=== PATIENT | female | born 1995 | race Caucasian/White ===

== ENCOUNTER 2019-03-21 19:03 | Emergency (ER) | payer OTHER ==
[2019-03-21 19:23] VITALS: PULSE 72; TEMP 98; BMI 28.3
--- NOTE | 2019-03-21 19:27 | PDOC ---
History of Present Illness - General Chief Complaint: Injury Stated Complaint: FALL Time Seen by Provider: 03/21/19 19:27 - History of Present Illness Initial Comments: 03/21/19 19:48 Ms. Dee Baeza is a 23 yo female w/ no pmh who presents for evaluation after fall. Patient was reportedly hanging something on the wall on a ladder when she mis-stepped and fell from approx. 5 feet up. Patient hit L side on the couch on the way down. Patient hit head and then lost consciousness for approximately 1 minute per friends who are with her. She is currently complaining of L sided pain. The patient denies chest pain, shortness of breath, and dizziness. Denies fever , chills, nausea, vomit, diarrhea and constipation. Denies dysuria, frequency, urgency and hematuria. Past History - Past Medical History Allergies/Adverse Reactions: Allergies Allergy/AdvReac Type Severity Reaction Status Date / Time No Known Allergies Allergy Verified 03/21/19 19:43 Home Medications: Ambulatory Orders NK [No Known Home Medication] 03/21/19 - Suicide/Smoking/Psychosocial Hx Smoking History: Unknown if ever smoked Have you smoked in the past 12 months: No Hx Alcohol Use: No Drug/Substance Use Hx: No Review of Systems - Review of Systems Comments:: 03/21/19 19:50 GENERAL/CONSTITUTIONAL: No fever or chills. No weakness. HEAD, EYES, EARS, NOSE AND THROAT: No change in vision. No ear pain or discharge. No sore throat. CARDIOVASCULAR: No chest pain or shortness of breath RESPIRATORY: No cough, wheezing, or hemoptysis. GASTROINTESTINAL: No nausea, vomiting, diarrhea or constipation. GENITOURINARY: No dysuria, frequency, or change in urination. MUSCULOSKELETAL: +L side pain where she struck the cough. SKIN: No rash NEUROLOGIC: +LOC as described. ENDOCRINE: No increased thirst. No abnormal weight change HEMATOLOGIC/LYMPHATIC: No anemia, easy bleeding, or history of blood clots. ALLERGIC/IMMUNOLOGIC: No hives or skin allergy. *Physical Exam - Vital Signs Last Vital Signs Temp Pulse Resp BP Pulse Ox 98 F 72 20 98/63 100 03/21/19 19:19 03/21/19 19:19 03/21/19 19:19 03/21/19 19:19 03/21/19 19:19 - Physical Exam Comments: 03/21/19 19:51 GENERAL: Awake, alert, and fully oriented, in no acute distress HEAD: No signs of trauma, normocephalic, atraumatic EYES: PERRLA, EOMI, sclera anicteric, conjunctiva clear ENT: Auricles normal inspection, hearing grossly normal, nares patent, oropharynx clear without exudates. Moist mucosa NECK: Normal ROM, supple, no lymphadenopathy, JVD, or masses LUNGS: +L sided chest wall tenderness. No distress, speaks full sentences, clear to auscultation bilaterally HEART: Regular rate and rhythm, normal S1 and S2, no murmurs, rubs or gallops, peripheral pulses normal and equal bilaterally. ABDOMEN: +L sided tenderness in upper and lower quadrants. Soft, normoactive bowel sounds. No guarding, no rebound. No masses EXTREMITIES: Normal inspection, Normal range of motion, no edema. No clubbing or cyanosis. NEUROLOGICAL: Cranial nerves II through XII grossly intact. Normal speech, normal gait, no focal sensorimotor deficits SKIN: Warm, Dry, normal turgor, no rashes or lesions noted. ED Treatment Course - LABORATORY CBC & Chemistry Diagram: 03/21/19 19:48 03/21/19 19:48 Medical Decision Making - Medical Decision Making 03/21/19 19:52 Ms. Dee Baeza is a 23 yo female w/ no pmh who presents for evaluation of traumatic injury. Fall described as mechanical and included L sided trauma and head injury / LOC. Patient will be evaluated with trauma labs as well as Head/C- spine/Chest/Abd/Pelvis CT's. 03/21/19 22:13 Head and C-spine CT's normal. 03/21/19 22:35 CT Chest/Abd/Pelvis normal. No concern for acute process at this time and patient observed to be resting comfortably in bed. Patient will be discharged for further outpatient evaluation. Discharging to home. *DC/Admit/Observation/Transfer Diagnosis at time of Disposition: Bruised rib Qualifiers: Encounter type: initial encounter Laterality: left Qualified Code(s): S20.212A - Contusion of left front wall of thorax, initial encounter - Discharge Dispostion Disposition: HOME - Referrals - Patient Instructions Printed Discharge Instructions: DI for Rib Contusion Additional Instructions: You were evaluated today in the ER after your fall. We performed labs as well as CT scans of your head, neck, chest, abdomen, and pelvis with no concerning findings. We believe you are safe for discharge to home at this time. You may take motrin or tylenol per package instructions for pain control. Follow-up with primary care provider early next week for further evaluation. Return to ER if any fever, chills, weakness, altered mental status, or other concerning symptoms. Fuiste evaluado hoy en la jessie de emergencias despus de tu cada. Realizamos anlisis de laboratorio y tomografas computarizadas de christensen iliana, teto, trax , abdomen y pelvis sin hallazgos preocupantes. Creemos que est seguro para ser dado de wenyd en christensen hogar en matt momento. Puede luc motrin o tylenol segn las instrucciones del paquete para controlar el dolor. Kaitlin un seguimiento con el proveedor de atencin primaria a principios de la prxima semana para godwin evaluacin adicional. Regrese a la jessie de emergencias si tiene fiebre, escalofros, debilidad, estado mental alterado u otros sntomas relacionados. Print Language: BELIZEAN - Post Discharge Activity
[2019-03-21] MEDS ORDERED: ONDANSETRON 4 MG/2 ML VIAL IVPUSH ONE (19:43)
[2019-03-21] MEDS ORDERED: morphine CARPU-JECT 4 MG/1 ML DISP.SYRIN IVPUSH ONE (19:43)
[2019-03-21] MEDS ORDERED: morphine SULFATE 4 MG/ML VIAL ONE (19:49)
[2019-03-21] MEDS ORDERED: ONDANSETRON 4 MG/2 ML VIAL ONE (19:49)
[2019-03-21 19:51] LABS: BASO % 0.2 % (0-2.0); EOS % 0.3 % (0-4.5); HEMATOCRIT 41.7 % (32.4-45.2); HEMOGLOBIN 13.9 GM/dL (10.7-15.3); LYMPH % 17.2 % (8-40); MCHC 33.3 g/dl (32.0-36.0); MEAN PLT VOLUME 8.3 fl (7.5-11.1); MONO % 3.8 % (3.8-10.2); NEUT % 78.5 % (42.8-82.8); RBC 4.48 M/mm3 (3.60-5.2); RDW 12.7 % (11.6-15.6); WHITE BLOOD COUNT 11.1 K/mm3 (4.0-10.0)
[2019-03-21 20:00] VITALS: BP 123/83
--- NOTE | 2019-03-21 20:04 | PDOC ---
Documentation entered by Manish Bal SCRIBE, acting as scribe for Emma Dash MD. Emma Dash MD: This documentation has been prepared by the scribe, Manish Bal SCRIBE, under my direction and personally reviewed by me in its entirety. I confirm that the documentation accurately reflects all work, treatment, procedures, and medical decision making performed by me. Attending Attestation - Resident Resident Name: [email or web address] - ED Attending Attestation I have performed the following: I have examined & evaluated the patient, The case was reviewed & discussed with the resident, I agree w/resident's findings & plan, Exceptions are as noted - HPI HPI: 03/21/19 20:00 The patient is a 23 year old female with no significant past medical history who presents to the emergency department with an injury s/p a fall prior to arrival. As per the patient's family at bedside, the patient was at home standing on a 6 foot ladder hanging something on the wall when she mis stepped , fell off and hit her head on the couch. As per the family, the patient had associated loc for about 1 minute. On exam, the patient reports some associated left sided flank pain. She denies any lightheadedness, dizziness, headache, vision changes, neck or back pain,nausea or vomiting. She denies any other symptoms or complaints. - Physicial Exam PE: GENERAL: Awake, alert, and fully oriented. In c-collar. Appears uncomfortable and anxious. HEAD: No signs of trauma EYES: PERRLA, EOMI, sclera anicteric, conjunctiva clear ENT: Auricles normal inspection, hearing grossly normal, nares patent, oropharynx clear without exudates. Moist mucosa NECK: Normal ROM, supple, no lymphadenopathy, JVD, or masses LUNGS: Breath sounds equal, clear to auscultation bilaterally. No wheezes, and no crackles. +Tenderness to L lateral lower rib margin and L flank HEART: Regular rate and rhythm, normal S1 and S2, no murmurs, rubs or gallops ABDOMEN: Soft, +LUQ tenderness, normoactive bowel sounds. No guarding, no rebound. No masses EXTREMITIES: Normal range of motion, no edema. No clubbing or cyanosis. No cords, erythema, or tenderness NEUROLOGICAL: Cranial nerves II through XII grossly intact. Normal speech. Motor and sensation intact SKIN: Warm, Dry, normal turgor, no rashes or lesions noted. - Medical Decision Making Based on mechanism, will obtain CT chest, abdomen, c-spine, and head. Will give pain medication, as she has exquisite tenderness to L sided ribs. Will need to r /o fracture and poss splenic injury.
[2019-03-21 20:09] LABS: INR 1.03 (0.83-1.09); PROTHROMBIN TIME (PATIENT) 12.2 SEC (9.7-13.0)
[2019-03-21 20:12] LABS: ACTIVATED PTT 29.6 SECONDS (25.2-36.5)
[2019-03-21 20:16] LABS: BILIRUBIN,TOTAL 0.5 mg/dL (0.2-1); BLOOD UREA NITROGEN 13.8 mg/dL (7-18); CREATININE 0.7 mg/dL (0.55-1.3); TOT PROT 7.6 g/dl (6.4-8.2)
[2019-03-21 20:33] LABS: PLATELET COUNT 313 K/MM3 (134-434)
== END 2019-03-21 23:26 | disposition home or self-care (01) ==
LOC: JER 19:03 → JERBED 19:32 → UNDOADMIN 19:32 → JER 23:26
PROC: 3E033NZ Introduction of Analgesics, Hypnotics, Sedatives into Peripheral Vein, Percutaneous Approach (ICD-10-PCS; principal; 2019-03-21)
PROC: 3E033GC Introduction of Other Therapeutic Substance into Peripheral Vein, Percutaneous Approach (ICD-10-PCS; 2019-03-21)
DX: S20.212A Contusion of left front wall of thorax, initial encounter (principal); S06.9X9A Unspecified intracranial injury with loss of consciousness of unspecified duration, initial encounter; W11.XXXA Fall on and from ladder, initial encounter; Y93.89 Activity, other specified; Y92.018 Other place in single-family (private) house as the place of occurrence of the external cause; Y99.8 Other external cause status
CPT/HCPCS: 36415; 70450-TC; 71260-TC; 72125-TC; 74177-TC; 80053; 84703; 85025; 85610; 85730; 86850; 86900; 86901; 96374; 96375; 99283-25

== ENCOUNTER 2021-10-23 14:36 | Emergency (ER) | payer OTHER ==
[2021-10-23 14:54] VITALS: BP 109/48; PULSE 92; TEMP 97.6; BMI 31.1
[2021-10-23] MEDS ORDERED: ACETAMINOPHEN 500 MG TABLET (FP) PO ONE (15:26)
[2021-10-23] MEDS ORDERED: ACETAMINOPHEN 500 MG TABLET (FP) ONE (15:35)
[2021-10-23 17:31] LABS: PH,URINE 5.5 (5.0-8.0); URINE APPEARANCE CLEAR; URINE BILIRUBIN NEGATIVE (NEGATIVE); URINE COLOR YELLOW; URINE GLUCOSE (UA) NEGATIVE (NEGATIVE); URINE KETONE TRACE (NEGATIVE); URINE LEUK ESTERASE NEGATIVE (NEGATIVE); URINE NITRITE NEGATIVE (NEGATIVE); URINE PROTEIN NEGATIVE (NEGATIVE); URINE UROBILINOGEN 0.2 mg/dL (0.2-1.0)
[2021-10-23 18:02] LABS: HCG,QUALITATIVE URINE Positive
[2021-10-23 18:21] LABS: BASO % 0.2 % (0-2.0); EOS % 0.2 % (0-4.5); LYMPH % 27.8 % (8-40); MCH 30.9 pg (25.7-33.7); MCHC 33.3 g/dl (32.0-36.0); MEAN CELL VOLUME 92.7 fl (80-96); MEAN PLT VOLUME 8.2 fl (7.5-11.1); MONO % 5.7 % (3.8-10.2); NEUT % 66.1 % (42.8-82.8); PLATELET COUNT 316 10^3/uL (134-434); RDW 13.3 % (11.6-15.6); WHITE BLOOD COUNT 9.8 K/mm3 (4.0-10.0)
[2021-10-23 18:39] LABS: CREATININE 0.6 mg/dL (0.55-1.3)
== END 2021-10-23 20:03 | disposition home or self-care (01) ==
LOC: JER 14:36 → JERFT 14:36
DX: O20.0 Threatened abortion (principal); Z3A.01 Less than 8 weeks gestation of pregnancy
CPT/HCPCS: 36415; 76817-TC; 80048; 81003; 84702; 84703; 85025; 87086; 99284-25

== ENCOUNTER 2021-10-30 14:28 | Emergency (ER) | payer OTHER ==
[2021-10-30 14:34] VITALS: TEMP 98.6; BMI 31.1
[2021-10-30 21:17] VITALS: BP 132/78; PULSE 89
== END 2021-10-30 21:17 | disposition home or self-care (01) ==
LOC: JER 14:28
DX: O20.0 Threatened abortion (principal)
CPT/HCPCS: 36415; 76817-TC; 84702; 99284-25

== ENCOUNTER 2023-02-16 08:05 | Emergency (ER) | payer OTHER ==
[2023-02-16 08:24] VITALS: BP 107/68; PULSE 89; RESP 18; TEMP 98.7; BMI 27.3
[2023-02-16] MEDS ORDERED: ACETAMINOPHEN 500 MG TABLET (FP) PO ONE (08:52)
[2023-02-16] MEDS ORDERED: ACETAMINOPHEN 325 MG TABLET (FP) ONE (09:03)
== END 2023-02-16 09:30 | disposition home or self-care (01) ==
LOC: JER 08:05
DX: M54.2 Cervicalgia (principal); M54.9 Dorsalgia, unspecified; V49.50XA Passenger injured in collision with unspecified motor vehicles in traffic accident, initial encounter
CPT/HCPCS: 99283-25

== ENCOUNTER 2023-02-27 06:20 | Emergency (ER) | payer OTHER ==
[2023-02-27 06:34] VITALS: BMI 27.1
[2023-02-27] MEDS ORDERED: LACTATED RINGERS SOLUTION 1,000 ML/1,000 ML INFUS.BAG IV STA ×2 (07:52→09:09)
[2023-02-27] MEDS ORDERED: ONDANSETRON 4 MG/2 ML VIAL ONE (08:09)
[2023-02-27] MEDS ORDERED: FAMOTIDINE 20 MG/50 ML IVPB 20 MG/50 ML MG IVPB ONE ×2 (08:09→08:10)
[2023-02-27] MEDS ORDERED: ONDANSETRON 4 MG/2 ML VIAL IVPUSH ONE (08:10)
[2023-02-27 08:44] LABS: BASO % 0.4 % (0-2.0); EOS % 0.3 % (0-4.5); HEMATOCRIT 42.4 % (32.4-45.2); HEMOGLOBIN 13.6 GM/dL (10.7-15.3); LYMPH % 14.8 % (8-40); MCH 29.6 pg (25.7-33.7); MEAN CELL VOLUME 92.6 fl (80-96); MEAN PLT VOLUME 8.4 fl (7.5-11.1); MONO % 6.6 % (3.8-10.2); NEUT % 77.9 % (42.8-82.8); PLATELET COUNT 308 10^3/uL (134-434); RBC 4.58 M/mm3 (3.60-5.2); RDW 13.6 % (11.6-15.6); WHITE BLOOD COUNT 11.2 K/mm3 (4.0-10.0)
[2023-02-27 08:59] LABS: BLOOD UREA NITROGEN 9.4 mg/dL (7-18); CALCIUM 9.2 mg/dL (8.5-10.1); MAGNESIUM 1.9 mg/dL (1.8-2.4)
[2023-02-27 09:02] LABS: CREATININE 0.7 mg/dL (0.55-1.3)
[2023-02-27 09:03] LABS: PHOSPHOROUS 3.8 mg/dL (2.5-4.9)
[2023-02-27 09:04] LABS: BILIRUBIN,TOTAL 0.4 mg/dL (0.2-1); TOT PROT 7.6 g/dl (6.4-8.2)
[2023-02-27] MEDS ORDERED: ACETAMINOPHEN 1000 MG/100 ML BAG IVPB ONE (09:09)
[2023-02-27] MEDS ORDERED: ACETAMINOPHEN INJECTION 100 ML IVPB ONE (09:34)
[2023-02-27 09:53] VITALS: RESP 18
[2023-02-27 12:52] VITALS: BP 101/62; PULSE 78; TEMP 98.9
== END 2023-02-27 12:59 | disposition home or self-care (01) ==
LOC: JER 06:20
PROC: 3E033GC Introduction of Other Therapeutic Substance into Peripheral Vein, Percutaneous Approach (ICD-10-PCS; principal; 2023-02-27)
PROC: 3E033NZ Introduction of Analgesics, Hypnotics, Sedatives into Peripheral Vein, Percutaneous Approach (ICD-10-PCS; 2023-02-27)
PROC: 3E033GC Introduction of Other Therapeutic Substance into Peripheral Vein, Percutaneous Approach (ICD-10-PCS; 2023-02-27)
PROC: 3E0337Z Introduction of Electrolytic and Water Balance Substance into Peripheral Vein, Percutaneous Approach (ICD-10-PCS; 2023-02-27)
DX: M79.10 Myalgia, unspecified site (principal); R53.1 Weakness; R10.9 Unspecified abdominal pain; R53.81 Other malaise; R09.81 Nasal congestion; E86.0 Dehydration; R11.2 Nausea with vomiting, unspecified; Z20.822 Contact with and (suspected) exposure to COVID-19
CPT/HCPCS: 0241U-QW; 36415; 80053; 82550; 83690; 83735; 84100; 84703; 85025; 86140; 99284-25